=== PATIENT | male | born 1995 | race Caucasian/White ===

== ENCOUNTER 2024-01-14 10:05 | Day surgery (SDC) | payer BC ==
[~2024-01-14 10:05] MED LIST: Sodium Chloride 0.9% 10 ML Syringe FLUSH PRN; Sodium Chloride 0.9% 2.5 ML Syringe FLUSH PRN; Sodium Chloride 0.9% 20 ML SDV IV PRN
[2024-01-14] MEDS ORDERED: propofoL 500 MG/50 ML 50 ML ONE (11:06)
[2024-01-14] MEDS: Lactated Ringers 1,000 ML IV SCH (11:06)
[2024-01-14] MEDS ORDERED: Lidocaine 2% 5 ML SDV ONE (11:06)
== END 2024-01-14 12:55 | disposition home or self-care (01) ==
LOC: MW.SDS 10:05
PROVIDERS: ATTEND Surgery
DX: Z12.11 Encounter for screening for malignant neoplasm of colon (principal); J45.909 Unspecified asthma, uncomplicated; Z80.0 Family history of malignant neoplasm of digestive organs
CPT/HCPCS: 45378; J2704; J7120; J3490